=== PATIENT | female | born 1950 ===

== ENCOUNTER 2021-06-04 06:00 | Outpatient (RCR) | payer MEDICARE, BC, SELFPAY | END 2021-06-18 23:59 | disposition home or self-care (01) | LOC: MPT 06:00 | PROVIDERS: PCP Internal Medicine; Referring Provider Registered Nurse; Visit Provider Registered Nurse | DX: Z47.1 Aftercare following joint replacement surgery (principal); Z96.651 Presence of right artificial knee joint | CPT/HCPCS: 97110; 97162 ==

== ENCOUNTER 2021-06-19 06:00 | Outpatient (RCR) | payer MEDICARE, BC, SELFPAY | END 2021-07-07 23:59 | disposition home or self-care (01) | LOC: MPT 06:00 | PROVIDERS: PCP Internal Medicine; Referring Provider Registered Nurse; Visit Provider Registered Nurse | DX: Z47.1 Aftercare following joint replacement surgery (principal); Z96.651 Presence of right artificial knee joint | CPT/HCPCS: 97110 ==

== ENCOUNTER 2022-03-18 06:00 | Outpatient (RCR) | payer MEDICARE, BC, SELFPAY | END 2022-03-20 23:59 | disposition home or self-care (01) | LOC: MPT 06:00 | PROVIDERS: PCP Internal Medicine; Visit Provider Registered Nurse | DX: Z96.651 Presence of right artificial knee joint (principal) | CPT/HCPCS: 97110; 97162 ==

== ENCOUNTER 2022-03-21 06:00 | Outpatient (RCR) | payer MEDICARE, BC, SELFPAY | END 2022-04-20 23:59 | disposition home or self-care (01) | LOC: MPT 06:00 | PROVIDERS: PCP Internal Medicine; Visit Provider Registered Nurse | DX: Z96.651 Presence of right artificial knee joint (principal) | CPT/HCPCS: 97110; 97116; G0283 ==

== ENCOUNTER 2022-04-21 06:00 | Outpatient (RCR) | payer MEDICARE, SELFPAY | END 2022-05-18 23:59 | disposition home or self-care (01) | LOC: MPT 06:00 | PROVIDERS: PCP Internal Medicine; Visit Provider Registered Nurse | DX: Z47.1 Aftercare following joint replacement surgery (principal); Z96.651 Presence of right artificial knee joint | CPT/HCPCS: 97110; 97116; 97530; G0283 ==

== ENCOUNTER 2022-05-19 06:00 | Outpatient (RCR) | payer MEDICARE, SELFPAY | END 2022-06-18 23:59 | disposition home or self-care (01) | LOC: MPT 06:00 | PROVIDERS: PCP Internal Medicine; Visit Provider Registered Nurse | DX: Z96.651 Presence of right artificial knee joint (principal) | CPT/HCPCS: 97110; 97116; G0283 ==